=== PATIENT | male | born 1985 | race Two or more races ===

== ENCOUNTER 2023-12-20 20:31 | Emergency (ER) | payer OTHER, SELFPAY ==
[2023-12-20 20:33] VITALS: BP 129/77
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
[2023-12-20] MEDS: MOTRIN 800 MG PO (22:05)
[2023-12-20 22:10] VITALS: BP 119/73
[2023-12-20 22:18] VITALS: BMI 28.3
== END 2023-12-20 22:30 | disposition home or self-care (01) ==
LOC: EMR 20:31
PROVIDERS: EMERGENCY PHYSICIAN Emergency Medicine; FAMILY PHYSICIAN Family Medicine
DX: S39.012A Strain of muscle, fascia and tendon of lower back, initial encounter (principal); S43.102A Unspecified dislocation of left acromioclavicular joint, initial encounter; R11.0 Nausea; G44.309 Post-traumatic headache, unspecified, not intractable; M25.552 Pain in left hip; V43.52XA Car driver injured in collision with other type car in traffic accident, initial encounter; Y92.410 Unspecified street and highway as the place of occurrence of the external cause; R03.0 Elevated blood-pressure reading, without diagnosis of hypertension; E78.00 Pure hypercholesterolemia, unspecified; Z85.51 Personal history of malignant neoplasm of bladder
CPT/HCPCS: 99284; 70450; 72110; 73030; 73502